=== PATIENT | female | born 1960 | race Caucasian/White ===

== ENCOUNTER → 2018-08-07 | Outpatient (CLI) | payer OTHER | LOC: FIMAGING 07:56 | PROVIDERS: ATTEND Internal Medicine | DX: M76.01 Gluteal tendinitis, right hip (principal); M76.02 Gluteal tendinitis, left hip; M24.851 Other specific joint derangements of right hip, not elsewhere classified; B20 Human immunodeficiency virus [HIV] disease; Z79.899 Other long term (current) drug therapy ==